=== PATIENT | female | born 1985 | race Caucasian/White ===

== ENCOUNTER 2023-04-16 16:43 | Emergency (ER) | payer OTHER ==
[~2023-04-16] VITALS: Ht 162.6 cm; Wt 44.5 kg
[2023-04-16 16:51] VITALS: BP 102/65; PULSE 88; RESP 20; TEMP 100; O2SAT 100
[2023-04-16 17:06] VITALS: BP 102/65; PULSE 88; RESP 20; TEMP 100; O2SAT 100
[2023-04-16] MEDS ORDERED: KETOROLAC 30 MG/ML VIAL IM ONE (17:20)
[2023-04-16] MEDS ORDERED: ACETAMINOPHEN 325 MG TAB PO ONE (17:35)
[2023-04-16 17:37] LABS: FLU A ANTIGEN negative (NEGATIVE); FLU B ANTIGEN NEGATIVE (NEGATIVE)
[2023-04-16] MEDS ORDERED: BENZ-300 PO (17:57)
[2023-04-16] MEDS ORDERED: PROM118S5 PO (17:57)
[2023-04-16] MEDS ORDERED: NIRM1TAB PO (17:57)
== END 2023-04-16 18:49 | disposition home or self-care (01) ==
LOC: MED 16:43
DX: U07.1 COVID-19 (principal); B34.9 Viral infection, unspecified; Z79.899 Other long term (current) drug therapy
CPT/HCPCS: 71045; 81025; 87081; 87426; 87804; 99284; Q0092